=== PATIENT | male | born 1990 | race Caucasian/White ===

== ENCOUNTER 2017-08-29 19:45 | Emergency (ER) | payer MEDICAID, OTHER ==
[~2017-08-29] VITALS: Ht 182.9 cm; Wt 95.3 kg
--- NOTE | 2017-08-29 20:46 | NUR ---
Patient discharged to home in stable conditon. Written and verbal after care instructions given. Patient verbalizes understanding of instructions. All belongings with patient. patient ambulated from ER with stable gait.
--- NOTE | 2017-08-29 20:46 | NUR ---
Patient refused to fill out an Animal Bite form
[2017-08-29 20:48] VITALS: BP 128/77
== END 2017-08-29 20:48 | disposition home or self-care (01) ==
LOC: ER 19:47
DX: S61.257A Open bite of left little finger without damage to nail, initial encounter (principal); S61.255A Open bite of left ring finger without damage to nail, initial encounter; S61.250A Open bite of right index finger without damage to nail, initial encounter; S61.258A Open bite of other finger without damage to nail, initial encounter; W54.0XXA Bitten by dog, initial encounter; Y93.89 Activity, other specified; Y92.9 Unspecified place or not applicable; Y99.9 Unspecified external cause status
CPT/HCPCS: 90715; A4663

== ENCOUNTER 2018-02-02 14:36 | Emergency (ER) | payer MEDICAID ==
[~2018-02-02] VITALS: Ht 182.9 cm; Wt 99.8 kg
--- NOTE | 2018-02-02 15:32 | NUR ---
Gurwinder charles in [facility] - 02/02/18 at 1537 by SHIV MSE COMPLETED, PT D/C'D HOME, ACI/RX X1 GIVEN. PT AMBULATED W/O DIFF TOOK ALL BEKLONGINGS.
--- NOTE | 2018-02-02 15:37 | NUR ---
Patient discharged to home in stable conditon. Written and verbal after care instructions given. Patient verbalizes understanding of instructions.
[2018-02-02 15:38] VITALS: BP 121/65
== END 2018-02-02 15:38 | disposition home or self-care (01) ==
LOC: ER 14:37
DX: T78.40XA Allergy, unspecified, initial encounter (principal); F17.210 Nicotine dependence, cigarettes, uncomplicated
CPT/HCPCS: A4663

== ENCOUNTER 2018-02-03 14:07 | Emergency (ER) | payer MEDICAID ==
[~2018-02-03] VITALS: Ht 182.9 cm; Wt 90.7 kg
--- NOTE | 2018-02-03 15:05 | NUR ---
Gurwinder charles in [facility] - 02/03/18 at 1523 by GABRIELLA CALLED [facility] FOR TRANSFER, ETA 1 HOUR.
--- NOTE | 2018-02-03 15:07 | NUR ---
Dr Calhoun at the bedside for MSE.
[2018-02-03] MEDS ORDERED: DEXAMETHASONE SOD PHOSPHATE 4 MG INJ IM ONE (15:15)
[2018-02-03] MEDS ORDERED: DEXAMETHASONE SOD PHOSPHATE 10 MG INJ ONE (15:25)
--- NOTE | 2018-02-03 15:43 | NUR ---
Patient discharged to home in stable conditon. Written and verbal after care instructions given. Patient verbalizes understanding of instructions.
[2018-02-03 15:45] VITALS: BP 113/90
== END 2018-02-03 15:46 | disposition home or self-care (01) ==
LOC: ER 14:07
DX: R21 Rash and other nonspecific skin eruption (principal); F17.210 Nicotine dependence, cigarettes, uncomplicated; F12.10 Cannabis abuse, uncomplicated
CPT/HCPCS: A4663; J1100

== ENCOUNTER 2018-07-17 10:58 | Emergency (ER) | payer MEDICAID ==
[~2018-07-17] VITALS: Ht 182.9 cm; Wt 90.7 kg
--- NOTE | 2018-07-17 11:37 | NUR ---
Patient discharged to home in stable conditon. Written and verbal after care instructions given to patient. Patient verbalizes understanding of instructions.
== END 2018-07-17 11:39 | disposition home or self-care (01) ==
LOC: ER 10:58
DX: L01.00 Impetigo, unspecified (principal); F12.10 Cannabis abuse, uncomplicated; F17.200 Nicotine dependence, unspecified, uncomplicated
CPT/HCPCS: A4663

== ENCOUNTER 2019-02-02 18:40 | Emergency (ER) | payer MEDICAID ==
[~2019-02-02] VITALS: Ht 182.9 cm; Wt 99.8 kg
[2019-02-02] MEDS ORDERED: KETOROLAC TROMETHAMINE 30 MG INJ ONE (18:58)
[2019-02-02] MEDS ORDERED: KETOROLAC TROMETHAMINE 30 MG INJ IM ONE (19:00)
--- NOTE | 2019-02-02 19:00 | NUR ---
Patient ambulated with stable gait. AAOx4. Speech is clear, speaks in complete sentences. No neuro deficits. Patient came in for c/o left wrist pain s/p fall yesterday. Respiratory even and unlabored, no sob, no cough. No cardiovascular distress, all pulses palpable. No GI/ distress noted. Patient in bed at lowest position. Side rails upx2. Call light within reach. Fall precautions implemented per protocol.
--- NOTE | 2019-02-02 20:00 | NUR ---
sugar tong splint applied. CMS intact. provided sling for patient.
--- NOTE | 2019-02-02 20:05 | NUR ---
Patient discharged to home in stable conditon. Written and verbal after care instructions given. Patient verbalizes understanding of instructions. Patient ambulated with stable gait.
[2019-02-02 20:31] VITALS: BP 110/60
== END 2019-02-02 20:09 | disposition home or self-care (01) ==
LOC: ER 18:41
DX: S62.102A Fracture of unspecified carpal bone, left wrist, initial encounter for closed fracture (principal); M25.511 Pain in right shoulder; F17.290 Nicotine dependence, other tobacco product, uncomplicated; F12.10 Cannabis abuse, uncomplicated; W01.0XXA Fall on same level from slipping, tripping and stumbling without subsequent striking against object, initial encounter; Y93.89 Activity, other specified; Y92.89 Other specified places as the place of occurrence of the external cause; Y99.8 Other external cause status
CPT/HCPCS: 29125; 73110; 96372; 99283; 99406; J1885; A4663

== ENCOUNTER 2021-08-30 07:15 | Emergency (ER) | payer MEDICAID ==
[~2021-08-30] VITALS: Ht 182.9 cm; Wt 90.7 kg
--- NOTE | 2021-08-30 08:00 | NUR ---
Pt refused any further treatment including x-ray and laceration repair. Wound was irrigated with NS, and a dressing was applied with triple antibiotic ointment to site. Stressed follow up or return to ER for worsening s/s. Pt was given extensive verbal ACI by and myself about s/s of infection, wound care at home and follow up.
[2021-08-30] MEDS ORDERED: NEOMY/BACITRA/POLYMYXIN B OINT UD PACKET TP ONE (08:05)
== END 2021-08-30 08:04 | disposition home health service (06) ==
LOC: ER 07:15
DX: S50.811A Abrasion of right forearm, initial encounter (principal); S50.11XA Contusion of right forearm, initial encounter; W01.198A Fall on same level from slipping, tripping and stumbling with subsequent striking against other object, initial encounter; Y92.89 Other specified places as the place of occurrence of the external cause; R03.0 Elevated blood-pressure reading, without diagnosis of hypertension
CPT/HCPCS: A4217; A4663

== ENCOUNTER 2024-05-04 14:41 | Emergency (ER) | payer MEDICAID, OTHER ==
[~2024-05-04] VITALS: Ht 182.9 cm; Wt 108.9 kg
[2024-05-04] MEDS ORDERED: KETOROLAC TROMETHAMINE 60 MG INJ IM ONE (16:04)
[2024-05-04] MEDS: KETOROLAC TROMETHAMINE 60 MG INJ IM ONE (16:09)
[2024-05-04] MEDS ORDERED: ONDA4TAB5 PO (17:02)
[2024-05-04] MEDS ORDERED: TRAM50TA2 PO (17:02)
[2024-05-04 17:25] VITALS: BP 138/74; TEMP 98.2; O2SAT 98
== END 2024-05-04 17:58 | disposition home or self-care (01) ==
LOC: ER 14:42
DX: S50.11XA Contusion of right forearm, initial encounter (principal); M54.9 Dorsalgia, unspecified; F17.200 Nicotine dependence, unspecified, uncomplicated; Z98.890 Other specified postprocedural states; Z79.899 Other long term (current) drug therapy; V89.2XXA Person injured in unspecified motor-vehicle accident, traffic, initial encounter; Y93.89 Activity, other specified; Y92.89 Other specified places as the place of occurrence of the external cause; Y99.8 Other external cause status
CPT/HCPCS: 99284; 71045; 72040; 72100; 73090; 96372; J1885; A4606; A4663